=== PATIENT | female | born 1980 | race Caucasian/White ===

== ENCOUNTER 2018-02-03 11:59 | Emergency (ER) | payer OTHER ==
[2018-02-03 12:06] VITALS: TEMP 98.2
[2018-02-03] MEDS ORDERED: NS 1,000 ML IV ONE (12:39)
[2018-02-03 12:55] LABS: PLATELET COUNT 253 10^3/uL (150-400)
--- NOTE | 2018-02-03 13:57 | EDPHY ---
H & P Stated Complaint: approx 7 weeks started bleeding this morning - Personal History LMP (Females 10-55): Current Tetanus/Diphtheria Vaccine: No Current Tetanus Diphtheria and Acellular Pertussis (TDAP): No - Medical/Surgical History Hx Asthma: No Hx Chronic Respiratory Disease: No Hx Diabetes: No Hx Cardiac Disease: No Hx Renal Disease: No Hx Cirrhosis: No Hx Alcoholism: No Hx HIV/AIDS: No Hx Splenectomy or Spleen Trauma: No Other PMH: none - Social History Smoking Status: Never smoked Time Seen by Provider: 02/03/18 12:15 HPI/ROS: Chief Complaint: with bleeding History of Present Illness: This is a 37 year old female, G2, P1, who believes she is 7 weeks who presents to the emergency department for vaginal bleeding. She states it began this morning. Initially she had dark blood, but has developed bright red blood and some clot passage. She has had mild pelvic cramping. She called her OBGYN office who recommended she come to the ER. ROS: A complete ROS was obtained and other than described above was negative. ( Deangelo Hong) - Physical Exam Exam: General: Alert, non toxic Eyes: PERRLA ENT: Mucous membranes moist. Lungs: CTAB Cardiac: RRR Abdomen: Soft, nondistended, non tender. MS: Moving all extremities well. Normal gait. Skin: No rashes. Neurological: A&OX4. Strength and sensation intact. Psych: Pleasant and cooperative. (Deangelo Hong) Constitutional: Initial Vital Signs Temperature (C) 36.8 C 02/03/18 12:04 Heart Rate 84 02/03/18 12:04 Respiratory Rate 20 02/03/18 12:04 Blood Pressure 125/79 H 02/03/18 12:04 O2 Sat (%) 95 02/03/18 12:04 O2 Delivery Mode Room Air Allergies/Adverse Reactions: No Known Allergies Allergy (Unverified 02/03/18 12:03) Home Medications: Medication Instructions Recorded Sertraline HCl 02/03/18 Medical Decision Making - Diagnostics Imaging: Discussed imaging studies w/ call center analyst Radiologist ED Course/Re-evaluation: Patient seen under the supervision of my secondary supervising physician Dr. Albert Martin. Patient presents reporting vaginal bleeding in the setting of . She is nontoxic. VSS. She appears to be having a miscarriage. O+, Rhogam not indicated. I consulted Dr. Guy, her OBGYN who is comfortable with her being discharged home and following up in clinic. Homecare was discussed. Return precautions given. (Deangelo Hong) Differential Diagnosis: Included but not limited to , miscarriage, ectopic, infectious pathology. (Deangelo Hong) Other Provider: PHYSICIAN DOCUMENTATION: The patient was evaluated and managed by the Physician Formulation Technician. My co- signature indicates that I have reviewed this chart and I agree with the findings and plan of care as documented. I am the secondary supervising physician. (Deshawn Martin) - Data Points Laboratory Results: Laboratory Results 02/03/18 12:45 02/03/18 12:45 Medications Given: Discontinued Medications Sodium Chloride (Ns) 1,000 mls @ 0 mls/hr IV EDNOW ONE; Wide Open PRN Reason: Protocol Stop: 02/03/18 12:40 Last Admin: 02/03/18 13:25 Dose: 1,000 mls Departure - Departure Disposition: Home, Routine, Self-Care Clinical Impression: Miscarriage Condition: Good Instructions: Miscarriage (ED) Additional Instructions: Call your OBGYN office on Monday to make a follow-up appointment at the end of the week Maintain pelvic rest as discussed, no tampons, no sexual intercourse If symptoms worsen or new symptoms develop return to the emergency room for recheck Referrals: NONE *PRIMARY CARE P,. [Primary Care Provider] - As per Instructions Heather Guy DO [Doctor of Osteopathy] - As per Instructions
[2018-02-03 14:06] VITALS: BP 114/65; PULSE 79; RESP 16; O2SAT 98
== END 2018-02-03 14:44 | disposition home or self-care (01) ==
DX: O03.9 Complete or unspecified spontaneous abortion without complication (principal); E86.9 Volume depletion, unspecified; Z3A.01 Less than 8 weeks gestation of pregnancy

== ENCOUNTER → 2018-09-10 | Outpatient (CLI) | payer OTHER | LOC: FIMAGING 07:27 | PROVIDERS: ATTEND Obstetrics & Gynecology | DX: O09.522 Supervision of elderly multigravida, second trimester (principal); O99.342 Other mental disorders complicating pregnancy, second trimester; Z3A.19 19 weeks gestation of pregnancy; Z79.811 Long term (current) use of aromatase inhibitors ==

== ENCOUNTER 2019-01-29 01:40 | Inpatient (IN) | payer OTHER ==
[2019-01-29] MEDS ORDERED: EPSOM SALT 454 GM TP PRN (01:52)
[2019-01-29] MEDS ORDERED: OLIVE OIL 118 ML BTL MISC PRN (01:52)
[2019-01-29] MEDS ORDERED: OXYTOCIN/RINGERS LACTATE 1,000 ML IV PRN (01:52)
[2019-01-29] MEDS ORDERED: MISOPROSTOL 200 MCG TAB PR PRN (01:52)
[2019-01-29] MEDS ORDERED: IBUPROFEN 600 MG TAB PO PRN (01:52)
[2019-01-29] MEDS ORDERED: LIDOCAINE 1% 300 MG/30 ML SDV SC PRN (01:52)
[2019-01-29] MEDS ORDERED: LR 1,000 ML IV PRN (01:52)
[2019-01-29] MEDS ORDERED: LIDOCAINE 1% 300 MG/30 ML SDV ONE (01:55)
[2019-01-29] MEDS ORDERED: OXYTOCIN 10 UNIT/ML VIAL ONE (01:56)
[2019-01-29] MEDS ORDERED: TERBUTALINE SULFATE 1 MG/ML VIAL ONE (01:56)
[2019-01-29] MEDS ORDERED: AMMONIA AROMATIC 1 EACH AMP IH ONE (01:56)
[2019-01-29] MEDS ORDERED: OLIVE OIL 118 ML BTL ONE (01:56)
[2019-01-29] MEDS ORDERED: MISOPROSTOL 200 MCG TAB ONE (01:57)
--- NOTE | 2019-01-29 02:47 | PDGENHP ---
History and Physical History and Physical: CARE: [facility] HPI: Patient is a 38 yo G 4 P 1 @ 39 + 1 weeks that presents to L&D with complaints of strong uterine contractions for 3-4 hours. Denies bleeding or LOF. EDC: 02/04/19 which is based on LMP: 04/20/18 which is known and consistent with Ultrasound at 8 weeks. Her is complicated by: borderline polyhydramnios, diet-controlled gestational diabetes, AMA, depression/anxiety Review of Systems: Constitutional: Denies any fever, chills, or fatigue HEENT: denies any visual changes, difficulty swallowing, hearing loss Cardiovascular: Denies any chest pain, palpitations, leg swelling Respiratory: denies any cough, wheezing, or shortness of breathe GI: Denies any nausea, vomiting, diarrhea, constipation : denies any dysuria, urgency, frequency, vaginal bleeding Musculoskeletal: denies any muscle or bone pain Skin: denies any rashes Neuro: denies any headache, seizures, lightheadedness, dizziness, or loss of consciousness Psychiatric: denies any depression, anxiety, or SI/HI thoughts HISTORY: Previous OB history: , 2015 9#2oz in [facility], SAB x 2 in 2018 Social history: SAHM Family history: M/F with hypertension, MGF with NV in his 40s, PGF diabetes, M cholestasis, MGM hodgkins lymphoma Past medical history: depression/anxiety, menstrual migraines Past surgical history: tonsillectomy Medications: PNV, Zoloft, Allergies: NKDA LABS: Rh: O+ ABS: Neg Rubella: Immune HbsAg: NR HIV: NR VDRL: NR 1hr: 162, did not complete 3hr d/t vomiting after second lab draw. Abnormal fasting glucose levels at 33 weeks. GC: Neg Chlamydia: Neg Pap: Normal 2017 GBS: neg BMI: (prepreg) 23 PHYSICAL EXAM: Constitutional: WN, A&Ox3 HEENT: normocephalic atraumatic, supple Heart: RRR, no murmur Chest: CTA-B Skin: warm, dry, intact Abdomen: Soft, nontender, gravid SVE: 5/80/-1 Extremities: trace edema, negative homans sign Neuro: grossly normal Psych: normal affect assessment: FHT baseline 130 bpm, +accels, no decels, moderate variability Contractions: toco q 2-6 minutes Assessment: 1) 38 yo G 4 P 1 with IUP@ 39weeks 1 day 2) spontaneous labor 3) GBS neg 4) Cat 1 FHR tracing Plan: 1) Admit to L&D 2) anticipate
[2019-01-29 03:02] LABS: PLATELET COUNT 161 10^3/uL (150-400)
--- NOTE | 2019-01-29 05:04 | OBDEL ---
Info Type: Vaginal Presentation at Delivery: Vertex L&D Analgesia/Anesthesia Type: None GBS+: No Intrapartum Medications: Generic Name Dose Route Start Last Admin Trade Name Freq PRN Reason Stop Dose Admin Lidocaine HCl 300 mg 01/29/19 01:52 01/29/19 04:39 Lidocaine Hcl 1% SC 07/28/19 01:51 300 mg ONCE PRN Administration episiotomy [place] Oil 118 ml 01/29/19 01:52 01/29/19 04:39 Sweet Oil MISC 07/28/19 01:51 1 btl ONCE PRN Administration perineal massage Discontinued Medications Generic Name Dose Route Start Last Admin Trade Name Freq PRN Reason Stop Dose Admin Oxytocin/Lactated Ringer's 1,000 mls @ 125 mls/hr 01/29/19 01:52 01/29/19 04: 39 Pitocin 20 Units/Lr (Premix) IV 1,000 mls PRN PRN Administration Post bleeding Ibuprofen 600 mg 01/29/19 01:52 01/29/19 04:54 Motrin PO 600 mg ONCE PRN Administration post , pain - Hospital Course Intrapartum: 01/29/19 05:01 mom progressed rapidly to complete after admission. used hydrotherapy for pain relief in first stage. Indications for Delivery: Spontaneous Labor, SROM, Diabetes Pregestational Well Controlled, Suspected Macrosomia Vaginal Delivery - Delivery Provider Delivery Physician/CNM: Liz Juarez - Labor and Delivery Onset of Contractions Date: 01/29/19 Onset of Contractions Time: 00:00 Onset of Contractions Type: Spontaneous Rupture of Membranes Date: 01/29/19 Rupture of Membranes Time: 04:07 Dilation Complete Date: 01/29/19 Dilation Complete Time: 04:03 Placenta Delivery Date: 01/29/19 Placenta Delivery Time: 04:34 Total Hours of Labor: 4 Laceration: 2nd Degree Repair: 2-0, Chromic Vaginal Sponge Count Correct: Yes Vaginal Needle Count Correct: Yes Vaginal Sweep Performed: Yes EBL: 200 Delivery Events: None Delivery Comment: head delivered in ILDA over intact perineum, shoulder and body followed atraumatically with maternal pushing effort, placed on abdomen and dried and stimulated by RN Data HUMBERTO: 02/04/19 Gestational Age: 39 week(s) and 1 day(s) Youssef Delivery Date: 01/29/19 Delivery Time: 04:20 Sex of Infant: Male Score (1 Min): 7 Score (5 Min): 9 ICD10 Worksheet Patient Problems: Problems Problem Status Onset Gestational diabetes mellitus in childbirth, diet controlled Acute (normal spontaneous vaginal delivery) Acute - ICD10 Problem Qualifiers (1) (normal spontaneous vaginal delivery) (2) Gestational diabetes mellitus in childbirth, diet controlled
[2019-01-29] MEDS ORDERED: DOCUSATE SODIUM 100 MG CAP PO PRN (05:08)
[2019-01-29] MEDS ORDERED: ACETAMINOPHEN 325 MG TAB PO PRN (05:08)
--- NOTE | 2019-01-29 08:41 | OBPP ---
Progress Note Assessment/Plan: Assessment: Plan: 01/29/19 08:40 Stable PP day #1 P) Moving to the unit soon. Plan on discharging . Subjective/ Course: 01/29/19 08:39 So happy with . States it was hard but went fast. Baby has been nursing since and just fell asleep. 01/29/19 08:39 Objective: 01/29/19 02:45 Patient ABO/Rh O POSITIVE 01/29/19 02:45 bleeding has been WNL Uterine Position/Fundal Height: At Umbilicus Uterine Tone: Firm
[2019-01-29] MEDS: SERTRALINE HCL 100 MG TAB PO SCH (09:02)
[2019-01-29] MEDS: IBUPROFEN 600 MG TAB PO PRN ×2 (15:13→21:07)
[2019-01-30] MEDS: IBUPROFEN 600 MG TAB PO PRN (04:09)
[2019-01-30 10:24] VITALS: BP 114/76
[2019-01-30] MEDS: SERTRALINE HCL 100 MG TAB PO SCH (10:26)
--- NOTE | 2019-01-30 12:30 | OBGCSDC ---
General Delivery Information - General Info : 4 Para: 2 Abortions: 2 Type: Vaginal L&D Analgesia/Anesthesia Type: Local Admission Date: 01/29/19 Labs: Patient ABO/Rh O POSITIVE 01/29/19 02:45 Hct 35.8 % (38.0-47.0) L 01/29/19 02:45 - Hospital Course Intrapartum: 01/29/19 05:01 mom progressed rapidly to complete after admission. used hydrotherapy for pain relief in first stage. : 01/29/19 08:39 So happy with . States it was hard but went fast. Baby has been nursing since and just fell asleep. 01/29/19 08:39 01/30/19 12:28 S) Pt doing well, reports min pain and bleeding. she is ambulating and voiding without difficulty. She is . She desires discharge home today. O) VSS, afebrile constitutional: WNF, A&Ox3 HEENT: normocephalic, atraumatic, supple Heart: RRR, No murmur Chest: CTA-B Breasts: soft, nontender, not engorged, nipples intact- a little sore Abdomen: Soft, nontender Uterus: Firm at U-2 Lochia: Minimal rubra Perineum: Intact, healing well Extremities: Trace edema, and negative Lizeth's sign Neuro: Grossly normal A) 38-year-old S/P PPD#1 P) Discharge home today Continue Pelvic rest x6wks Discussed danger signs (infection, preeclampsia, depression, heavy bleeding, etc ) RTO in 2/4/6 weeks Vaginal - Delivery Provider Delivery Physician/CNM: Liz Juarez - Diagnosis Labor: Spontaneous Laceration: 2nd Degree Repair: 2-0, Chromic Delivery Events: None - Delivery EBL: 200 Data HUMBERTO: 02/04/19 Gestational Age: 39 week(s) and 2 day(s) Youssef Delivery Date: 01/29/19 Delivery Time: 04:20 Sex of : Male Weight (gm): 3965 kg Score (1 Min): 7 Score (5 Min): 9
== END 2019-01-30 18:10 | disposition home or self-care (01) | DRG 807 ==
LOC: FLD 01:40 → FOB 08:50
PROVIDERS: ADMIT Advanced Practice Midwife; ATTEND Advanced Practice Midwife
DX: O70.1 Second degree perineal laceration during delivery (principal); O40.3XX0 Polyhydramnios, third trimester, not applicable or unspecified; O24.410 Gestational diabetes mellitus in pregnancy, diet controlled; Z3A.39 39 weeks gestation of pregnancy; Z37.0 Single live birth
CPT/HCPCS: J2590; J3105